=== PATIENT | male | born 1950 | race Caucasian/White ===

== ENCOUNTER 2018-07-19 17:59 | Emergency (ER) | payer MEDICARE ==
[~2018-07-19] VITALS: Ht 180.3 cm; Wt 104.5 kg
[2018-07-19] MEDS ORDERED: FLUO10CA8 PO (18:06)
[2018-07-19] MEDS ORDERED: KEPP1TAB PO (18:06)
[2018-07-19] MEDS ORDERED: DEXA0.5E2 PO (18:06)
[2018-07-19] MEDS ORDERED: [UNRECOGNIZED DRUG - CODE] PO (18:06)
[2018-07-19] MEDS ORDERED: NORV2TAB PO (18:06)
[2018-07-19] MEDS ORDERED: PROTPAK PO (18:06)
[2018-07-19] MEDS ORDERED: CLAR10CA3 PO (18:11)
[2018-07-19] MEDS ORDERED: ROBI1CAP PO (18:12)
[2018-07-19] MEDS ORDERED: IPRATROPIUM 0.5MG/ALBUTEROL 2.5MG INH SOL UD 3ML (DUONEB)(J7620) NEB PRN (18:30)
[2018-07-19] MEDS ORDERED: NS 500 ML IV ONE (18:30)
[2018-07-19] MEDS ORDERED: DEXA5TA PO (18:31)
[2018-07-19 19:00] LABS: BASO % 0.1 % (0.0-1.0); EOS % 0.1 % (0.0-3.0); HEMATOCRIT 39.8 % (42.0-52.0); HEMOGLOBIN 13.3 g/dl (13.5-17.5); LYMPH # 0.4 10^3/uL (1.5-4.5); LYMPH % 4.3 % (24.0-44.0); MEAN CORPUSCULAR HEMOGLOBIN 33.8 pg (27.0-33.0); MEAN CORPUSCULAR HGB CONC 33.4 g/dl (32.0-36.5); MONO # 0.3 10^3/uL (0.0-0.8); NEUTROPHILS # 8.1 10^3/uL (1.8-7.7); NEUTROPHILS % 91.8 % (36.0-66.0); PLATELET COUNT, AUTOMATED 159 10^3/uL (150-450); RED BLOOD COUNT 3.94 10^6/uL (4.30-6.10); WHITE BLOOD COUNT 8.8 10^3/uL (4.0-10.0)
[2018-07-19 19:14] LABS: INR 0.94; PROTHROMBIN TIME 12.7 SECONDS (12.1-14.4)
[2018-07-19 19:25] LABS: BLOOD UREA NITROGEN 20 MG/DL (7-18); CALCIUM LEVEL 8.6 MG/DL (8.8-10.2); CARBON DIOXIDE LEVEL 23 MEQ/L (21-32); CHLORIDE LEVEL 106 MEQ/L (98-107); CREATININE FOR GFR 1.06 MG/DL (0.70-1.30); GLOMERULAR FILTRATION RATE > 60.0 (>49); GLUCOSE, FASTING 210 MG/DL (70-100); POTASSIUM SERUM 3.8 MEQ/L (3.5-5.1); SODIUM LEVEL 139 MEQ/L (136-145)
[2018-07-19] MEDS ORDERED: ALBUTEROL 90 MCG/ACT 8GM HFA INHALER INH ONE (20:00)
[2018-07-19] MEDS ORDERED: AZITHROMYCIN 250 MG TAB PO ONE (20:00)
[2018-07-19] MEDS ORDERED: PROAAER10 INH (20:11)
[2018-07-19] MEDS ORDERED: AZIT-12 PO (20:11)
[2018-07-19 20:36] VITALS: BP 127/85
--- NOTE | 2018-07-20 08:30 | REP ---
CHEST, TWO VIEWS: No comparison. Two views of the chest are performed. There is no evidence of acute infiltrate or pulmonary edema. The heart is normal in size. There is some tortuosity of the thoracic aorta. The mediastinal silhouette is otherwise unremarkable. There are mild degenerative changes of the spine. IMPRESSION: No acute pulmonary disease. Electronically Signed by Filiberto Rachel MD 07/21/2018 09:58 A
== END 2018-07-19 20:45 | disposition home or self-care (01) ==
LOC: M ED 17:59
DX: R05 Cough (principal); R06.2 Wheezing; R23.3 Spontaneous ecchymoses; I10 Essential (primary) hypertension; E78.5 Hyperlipidemia, unspecified; Z79.899 Other long term (current) drug therapy; Z88.8 Allergy status to other drugs, medicaments and biological substances

== ENCOUNTER 2018-08-09 18:50 | Emergency (ER) | payer MEDICARE ==
[~2018-08-09] VITALS: Ht 180.3 cm; Wt 104.5 kg
[~2018-08-09 18:50] MED LIST: AZIT-12 PO; CLAR10CA3 PO; DEXA0.5E2 PO; DEXA5TA PO; FLUO10CA8 PO; KEPP1TAB PO; NORV2TAB PO; PROAAER10 INH; PROTPAK PO; ROBI1CAP PO; [UNRECOGNIZED DRUG - CODE] PO
--- NOTE | 2018-08-09 20:17 | REPVR ---
EXAM: US Duplex Left Lower Extremity Veins, Limited EXAM DATE/TIME: 08/09/2018 7:51 PM CLINICAL HISTORY: 68 years old, male; Pain; Edema, localized; Lower extremity, left; Leg, upper and leg, lower; Additional info: Pain/swell TECHNIQUE: Imaging protocol: Real-time Duplex ultrasound of the Left Lower Extremity with 2-D self scale, color Doppler flow and spectral waveform analysis. Limited exam focused on the left lower extremity veins. COMPARISON: No relevant prior studies available. FINDINGS: Left deep veins: Heterogeneous, nonocclusive thrombus in the distal femoral and popliteal veins. The common femoral, proximal profunda femoral and proximal to mid femoral veins are patent without thrombus. Left superficial veins: Unremarkable. Saphenofemoral junction is patent without thrombus. Soft tissues: Unremarkable. IMPRESSION: Heterogeneous, nonocclusive thrombus in the distal femoral and popliteal veins. Electronically signed by: Rob Chávez On 08/09/2018 20:16:55 PM
[2018-08-09] MEDS ORDERED: APIXABAN 5 MG TAB (ELIQUIS) PO ONE (20:30)
[2018-08-09] MEDS ORDERED: ELIQ5TAB PO ×2 (20:53→21:31)
[2018-08-09 21:36] VITALS: BP 146/73
== END 2018-08-09 21:39 | disposition home or self-care (01) ==
LOC: M ED 18:50
DX: I82.412 Acute embolism and thrombosis of left femoral vein (principal); I82.432 Acute embolism and thrombosis of left popliteal vein; I10 Essential (primary) hypertension; C71.9 Malignant neoplasm of brain, unspecified; K21.9 Gastro-esophageal reflux disease without esophagitis; G40.909 Epilepsy, unspecified, not intractable, without status epilepticus; J42 Unspecified chronic bronchitis; Z79.899 Other long term (current) drug therapy; Z79.01 Long term (current) use of anticoagulants; Z88.8 Allergy status to other drugs, medicaments and biological substances; F17.210 Nicotine dependence, cigarettes, uncomplicated